=== PATIENT | male | born 1990 | race Two or more races ===

== ENCOUNTER 2024-09-20 10:33 | Emergency (ER) | payer OTHER, SELFPAY ==
--- NOTE | ~2024-09-20 | XR_ITS ---
EXAMINATION: XR KNEE, LEFT CLINICAL INFORMATION: INJURED AT WORK, PAIN AND SWELLING COMPARISON: None available. TECHNIQUE: AP oblique and lateral views of the left knee. FINDINGS: No acute cortical disruption or malalignment. No suprapatellar bursa joint effusion. No lytic or blastic lesions. XR/XR knee LT 4V IMPRESSION: No acute fracture or dislocation. Negative x-ray. Electronically signed by: Jagdeep Stubbs MD 09/20/2024 11:17 AM EDT
[2024-09-20 10:45] VITALS: BP 146/72; PULSE 76; RESP 16; TEMP 36.4; O2SAT 98; BMI 29.2
--- NOTE | 2024-09-20 12:24 | ED_ITS ---
HPI - General Adult General Chief complaint: Extremity Injury, Lower Stated complaint: l knee inj at work Time Seen by Provider: 09/20/24 12:15 Source: patient, RN notes reviewed and old records reviewed Mode of arrival: ambulatory Limitations: no limitations History of Present Illness ED Provider: Thompson [facility] 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 Has not taken any ybwk-wzc-znntoyl medications. Arrives with najw-kxa-ncdxiur brace. Denies any weakness, numbness, tingling. Able to ambulate without difficulty. Denies fevers. MD complaint: knee pain Onset (ago): day(s) Related Data Allergies Allergy/AdvReac Type Severity Reaction Status Date / Time No Known Allergies Allergy Verified 09/20/24 10:47 Review of Systems Review of Systems: as per hpi Yes all other systems are reviewed and are negative Constitutional: Constitutional: Reports as per HPI [facility] Social History Social History Advance Directives: No Advance Directives Information Provided: Yes Physical Exam ED Vital Signs: Vital Signs - 24 hr 09/20/24 10:45 Temperature 97.6 F Pulse Rate 76 Respiratory Rate 16 Blood Pressure 146/72 H Pulse Oximetry 98 Oxygen Delivery Method Room Air BMI result Body Mass Index 29.2 Vital signs have been reviewed and appear to be correct. Blood pressure normal. Heart rate normal. Respiratory rate normal. Temperature normal. Oxygen saturation normal. Const General: cooperative, healthy appearing and no acute distress Orientation/consciousness: oriented to person, oriented to place, oriented to time and patient oriented x3 Limitations: no limitations [facility] Head: Yes normocephalic and Yes atraumatic Ears: external ears normal General nose exam: Normal external nose present Face and sinus: Yes face symmetric Mouth: oropharynx normal and moist mucous membranes Throat: Yes uvula midline Eyes Pupils: Equal, round and reactive pupils present Neck Neck: Yes normal visual inspection and Yes supple Resp Effort & Inspection: normal respiratory effort and able to speak in complete sentences Auscultation: clear to auscultation bilaterally Cardio Rate: regular rate Rhythm: regular rhythm Heart sounds: S1 normal heart sound present and S2 normal heart sound present GI Palpation (GI): Soft to palpation and nontender Auscultation: normoactive bowel sounds General: Yes no CVA tenderness Back/Spine/Pelvis Back: no CVA tenderness Skin General skin exam: elasticity normal and turgor normal Neuro General: oriented to person, oriented to place, oriented to time, patient oriented x3, moves all extremities, no focal motor deficits and CN's II-XI intact bilaterally Cranial nerves: Yes Equal, round and reactive pupils present Cognition (Neuro): normal cognition Extrem General: Yes full ROM, Yes no pedal edema and Yes no calf tenderness Left lower extremity: knee Details: normal to inspection, normal ROM and knee ligament exam normal; no tenderness, no swelling, no ecchymosis, no crepitus and no unusual warmth Psych Mental Status: mental status grossly normal Affect: normal affect Thought process: Normal thought process present Medical Decision Making Medical Decision Making [facility] Narrative: Patient is a 34-year-old male presenting to the emergency department with complaint of left knee pain since 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 On exam patient is awake, A+Ox3, VS WNL, afebrile, normal neurological exam without focal deficits, physical exam findings as above. Given reported symptoms and physical exam findings, initial differential includes but is not limited to left knee strain, sprain, effusion. Unlikely fracture or ligament injury based on physical exam findings. X-ray notable for no acute fracture. My interpretation is in agreement with the radiologist's interpretation. Results discussed with patient all questions answered. Advised alternating Tylenol and ibuprofen, rest, ice, elevation. Will give orthopedic referral for ongoing symptoms. Also [facility]. Return precautions discussed. Patient verbalized understanding of and agreement with plan. Differential Diagnosis Differential Diagnoses: The differential diagnosis associated with the presentation includes As per [facility] Admission/Observation Consideration of admission/observation: Escalation of care including admission/observation considered Patient would have been admitted to the hospital had their clinical presentation warranted hospital admission. Independent Interpretation I performed an independent interpretation of an: Plain X-Ray Radiology Impression Discussion of test interpretation with radiology: I have reviewed the radiologist's reading. Radiologist Impression: XR/XR knee LT 4V IMPRESSION: No acute fracture or dislocation. Negative x-ray. External Record Review External record reviewed: Inpatient record, Office record and Outpatient record Discharge Plan Discharge Clinical Impression: Strain of left knee Qualifiers: Encounter type: initial encounter Qualified Code(s): S86.912A - Strain of unspecified muscle(s) and tendon(s) at lower leg level, left leg, initial encounter Patient Disposition: Home, Self-Care Instructions: Knee Pain (ED), P.R.I.C.E. Treatment (ED) Additional Instructions: You have been evaluated in the emergency department today for knee pain. Your evaluation did not find evidence of medical conditions requiring emergent intervention at this time. Rest, ice, and elevate your knee, and resume normal activities as tolerated. Continue to use the brace for support. We recommend y ou take 600mg ibuprofen every 6 hours or 650mg Tylenol every 6 hours as needed for pain. If needed you can alternate these medications as they take 1 medication every 3 hours. For instance at noon take ibuprofen, then at 3:00 p.m. take Tylenol, then at 6:00 p.m. take ibuprofen. Please schedule an appointment for follow-up with your primary care provider this week. Follow up with orthopedics if symptoms persist beyond the next 1-2 weeks. Return to the emergency department if you experience worsening pain, numbness, tingling, change of color in your leg, or any other concerning symptoms. You can follow up with [facility] if you are unable to return to work. [facility] [address] [place] [address] Referrals: [facility] [Provider Group] Clinical Impression: Strain of left knee Stand Alone Forms: Work/School Release Print Language: Liberian
--- OUTSIDE RECORDS SUMMARY | 2024-09-20 12:38 | XMS_ITS | Clinical Summary ---
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 Role Phone Unavailable Primary Care Provider Unavailabl e Immunizations Immunization Administration Dates Next Due DTP 07/04/1992, 0,1988,1988,1988 Hep B, ped/adol 06/10/2000,12/01/1999,10/15/1999 Hib (PRP-T) 12/09/1989 MMR 10/15/1999,07/05/1989 OPV 07/04/1992, 0,1988,1988 Td (adult) (MBL), 2 Lf tetan us toxoid, PF, adsorbed 10/15/1999 Family History Relation Name Status Comments Brother Alive Brother: Alive and well Father Alive Father: Alive a nd well Mother Alive Mother: Alive a nd well Other Alive wili: Alive an d well Social History Tobacco Use Types Packs/Day Years Used Date Smoking Tobacco: Never Assessed Sex and Gender Information Value Date Recorded Sex Assigned at Not on file Legal Sex Male 4:11 PM EDT Gender Identity Not on file Sexual Orientation Not on file Plan of Treatment Health Maintenance Due Date Last Done Comments DTaP,Tdap,and Td Vaccines (6 - Tdap) 10/16/1999 10/15/1999, 07/04/1992, 12/09/1989, Additional history exists Varicella Vaccines (1 of 2 - 13+ 2-dose series) 01/15/2001 HPV Vaccines (1 - 3-dose SCDM series) 01/15/2015 COVID-19 Vaccine (1 - 2023- season) 2023 Influenza Vaccines (#1) 2024 HIB Vaccines Completed 12/09/1989 IPV Vaccines Completed 07/04/1992, 11/15, 1988, Additional history exists MMR Vaccines Completed 10/15/1999, 07/05/1989 Hepatitis B Vaccines Completed 06/10/2000, 12/01/1999, 10/15/1999 Hepatitis A Vaccines Aged Out No long er eligible based on patient's age to complete this topic Men B Vaccine Aged Out No longer elig ible based on patient's age to complete this topic Meningococcal Vaccine Aged Out No chelsi todd eligible based on patient's age to complete this topic Pneumococcal Vaccine Aged Out No long er eligible based on patient's age to complete this topic
[2024-09-20 13:14] VITALS: BP 146/72; PULSE 76; RESP 16; TEMP 36.4; O2SAT 98
== END 2024-09-20 13:14 | disposition home or self-care (01) ==
PROVIDERS: Emergency Provider Emergency Medicine
DX: S39.012A Strain of muscle, fascia and tendon of lower back, initial encounter (principal); X58.XXXA Exposure to other specified factors, initial encounter; Y93.01 Activity, walking, marching and hiking; Y92.89 Other specified places as the place of occurrence of the external cause
CPT/HCPCS: 73564; 99282; 99283

== ENCOUNTER → 2024-09-20 11:00 | Outpatient (BNV) | payer OTHER, SELFPAY | PROVIDERS: Visit Provider Radiology Diagnostic Radiology | DX: M25.562 Pain in left knee (principal) | CPT/HCPCS: 73564 ==

== ENCOUNTER 2024-10-31 08:30 | Outpatient (REF) | payer OTHER, SELFPAY ==
--- NOTE | ~2024-10-31 | XR_ITS ---
EXAMINATION: XR KNEE, LEFT CLINICAL INFORMATION: M25.562 - Pain in left knee COMPARISON: None available. TECHNIQUE: AP view bilateral knees standing, lateral and patellofemoral views left knee. FINDINGS: RIGHT KNEE: No fracture or dislocation. Normal alignment. Preserved joint spaces. Normal soft tissues. LEFT KNEE: No fracture, dislocation, or suspicious bone lesion. Joint spaces are preserved. Normal knee and patellar alignment. Normal soft tissues. XR/XR knee LT 3V IMPRESSION: 1. Normal left knee radiographs. Electronically signed by: Mc Cameron MD 10/31/2024 11:37 AM EDT
--- OUTSIDE RECORDS SUMMARY | 2024-10-31 09:40 | XMS_ITS | Encounter Summary ---
Author Organization [facility] Address [address] [place] [phone] Phone Care Team Providers Care Medical Unit Secretary Name Role Phone Eric Bolton MD Primary Care Provider [phone] Encounter Details Date Type Department Care Team (Late st Contact Info) Description 09/30/2016 Conversion Encounter [facility] [place] [address] [place] [address] Social History Tobacco Use Types Packs/Day Years Used Date Smoking Tobacco: Never Assessed Sex and Gender Information Value Date Recorded Sex Assigned at Not on file Legal Sex Male 4:11 PM EDT Gender Identity Not on file Sexual Orientation Not on file documented as of this encounter Plan of Treatment Not on file documented as of this encounter Visit Diagnoses Not on filedocumented in this encounter Care Teams Medical Unit Secretary Relationship Specialty Start Date End Date Eric Bolton MD [address] [place] [address] PCP - General 09/24/16 05/23/22 documented as of this encounter
--- OUTSIDE RECORDS SUMMARY | 2024-10-31 09:40 | XMS_ITS | Clinical Summary ---
Author Organization [facility] Address [address] [place] [phone] Phone Care Team Providers Care Comedian Name Role Phone Unavailable Primary Care Provider [...] Vaccines (1 - 3-dose SCDM series) 01/15/2015 Influenza Vaccines (#1) 2024 COVID-19 Vaccine ( - season) 2024 HIB Vaccines Completed 12/09/1989 IPV Vaccines [...]
== END 2024-10-31 08:31 | disposition home or self-care (01) ==
LOC: HO.HOSX 08:30
DX: S83.002D Unspecified subluxation of left patella, subsequent encounter (principal); M25.562 Pain in left knee; Y99.0 Civilian activity done for income or pay; W50.2XXD Accidental twist by another person, subsequent encounter
CPT/HCPCS: 73562; 99202

== ENCOUNTER 2024-10-31 11:13 | Outpatient (AMB) | payer OTHER, SELFPAY ==
--- NOTE | 2024-10-31 11:15 | A.OFFVIS_ITS ---
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 This is a workers comp injury. 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 At the ED he was advised to rest, ice, and elevate the knee, and continue with normal activities as tolerated. He presents today with a knee brace he bought himself over the counter. He says he is unsure if the brace is helping his knee since he has noticed more pain with it on. Any bending activities of the knee increases his pain along with ambulation of stairs. Every now and then patient experiencing cracking and popping in the left knee. Pain is localized on patient's knee cap. Some days he feels his knee cap is not attached. Patient states he had no injuries to the knees prior to this one. Denies numbness and tingling. 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 This is a workers comp injury. 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 The patient feels that he felt his kneecap ?slide out of place? during the injury, but then it did return to anatomical position without further issue. At the ED he was advised to rest, ice, and elevate the knee, and continue with normal activities as tolerated. He presents today with a knee brace he bought himself over the counter. He says he is unsure if the brace is helping his knee since he has noticed more pain with it on. Any bending activities of the knee increases his pain along with ambulation of stairs. Every now and then patient experiencing cracking and popping in the left knee. Pain is localized on patient's knee cap. Some days he feels his knee cap is not attached. Patient states he had no injuries to the knees prior to this one. Denies numbness and tingling. [facility] Social History (Updated 10/31/24 @ 11:30 by MARII Mancilla) Alcohol intake: current Alcohol intake frequency: holidays/special occasions only Patient Tobacco Use Status: Current someday Tobacco user Tobacco use type: Cigar Current occupational status: employed Current occupation: [employer] employee - right hand dominant Review of Systems Const All systems reviewed & are unremarkable except as noted in HPI and below Physical Exam Vital Signs: BMI result Body Mass Index 28.5 Extrem Other: Patient's left knee normal to inspection No erythema, ecchymosis, edema noted No lacerations, abrasions, open areas No evidence of infection Patient reports tenderness to palpation of the peripatellar region of the left knee, including the patellar tendon No tenderness to palpation of mediolateral joint lines, posterior knee, quad tendon, tibial tubercle, or elsewhere on the left knee Patient is able to extend the left knee to 0 degrees and flex to approximately 120 degrees without difficulty Negative Jason's No ligamentous laxity with varus and valgus testing Negative anterior drawer Positive patellar apprehension in the left, negative on the right Positive patellar grind on the left, negative on the right Distal sensation intact Capillary refill brisk Results Reviewed Results Reviewed: X-rays obtained in the office today and independently reviewed by me, Josh Sorensen PA-C, demonstrate no fracture or acute bony abnormality of the left knee. Assessment & Plan Assessment & Plan (1) Subluxation of left patella: Code(s): S83.002A - Unspecified subluxation of left patella, initial encounter Category: Medical Plan 1. Subluxation of the left patella Date of injury 09/20/2024 Patient is educated about this condition Patient is educated about the typical treatment and recovery course As this is the 1st time the patient has had any issues with patellar dislocation or subluxation, I feel that a course of physical therapy and symptomatic bracing is the best place to start in terms of his treatment PT referral was placed in the office today for range of motion, strengthening, stabilization, gait training of the left knee in the setting of patellar subl uxation/instability Patient is educated that if PT is ineffective, particularly if he experiences repeat injury, he should call our office for reassessment and discussion of further treatment options Patient understands this is amenable to this plan Follow-up as needed with any acute concerns Orders: Orders XR knee LT 3V 10/31/24 M25.562 - Pain in left knee PT Evaluation and Treatment 10/31/24 S83.002A - Unspecified subluxation of left patella, initial encounter Coding Level of Care Code New Pt Level 3 (36412) Diagnoses Subluxation of left patella S83.002A
[2024-10-31 11:28] VITALS: BMI 28.5
== END 2024-10-31 11:51 | disposition home or self-care (01) ==
LOC: HO.HOS 11:14
DX: S83.002A Unspecified subluxation of left patella, initial encounter (principal)
CPT/HCPCS: 99203

== ENCOUNTER → 2024-10-31 11:15 | Outpatient (BNV) | payer OTHER, SELFPAY | PROVIDERS: Visit Provider Radiology Diagnostic Radiology | DX: M25.562 Pain in left knee (principal) | CPT/HCPCS: 73562 ==

== ENCOUNTER 2024-12-11 08:59 | Outpatient (RCR) | payer OTHER, SELFPAY ==
--- NOTE | 2024-11-13 09:45 | MHC.PT.EP ---
[facility] [place] Office [place] [facility] [place] [facility] [address] [phone] F: [phone] F: [phone] F: [phone] F: [phone] Physical Therapy Plan of Care Date of Evaluation: 11/13/24 Date of Surgery: NA Diagnosis: Unspecified subluxation of L patella, iniital encounter Assessment: Efra is a 31 year old male who is referred to PT for unspecified subluxation of L patella, initial encounter . He injured his L knee at work about 1 month back while doing twisting motion on planted foot. On PT examination he presented with TTP along medial border of patella, 5/10 pain in L knee with sitting or standing for more than 15 minutes, and stairs decreased L knee ROM, decreased L LE strength, altered posture and gait. He lives with family and is independent with all ADLS but has pain with them. He works for [employer] and is currently out of work. He would benefit from skilled PT to address the aforementioned impairments and improve tolerance to functional activities. Frequency and Duration: The patient will be seen 2/week for 5 weeks Short Term Goals: 1. Pt will have 50% decrease in pain which will enable him to sit without pain in 2 weeks 2. Pt will be able to move his knee through full plane of motion without pain which will enable him to negotiate stairs without pain in 3 weeks Lay Out Former Goals: 1. Pt will demonstrate an increase in muscle strength by 1 grade which will enable him to tolerate walking and doing ADLS without pain in 5 weeks 2. Pt will be independent with all HEP and return to PLOF in 5 weeks Treatment Plan: Modalities to reduce pain, spasms and effusion. Manual therapy to restore motion and function. Therapeutic exercise to improve strength and flexibility. Neuromuscular re-education for posture and balance. Therapeutic activities to return to functional activities of daily living. Electronically signed by: Jo Ann Devine PT DPT Please sign and return to therapist. Thank you for your referral.
--- NOTE | 2025-01-15 11:33 | MHC.PT.DC ---
[facility] [place] Office [place] Office [place] Office [address] [phone] F: [phone] F: [phone] F: [phone] F: [phone] Physical Therapy Discharge Report Diagnosis: Unspecified subluxation of L patella, iniital encounter Date of Surgery: NA Date of Evaluation: 11/13/24 Date of Discharge: 01/15/25 Treatments to Date: 5 Cancellations to Date: 0 No Shows to Date: 0 Discharge Status: Improved Function Independent with HEP Discharge Summary: Efra canceled his last 2 appointments stating he was cleared to return to work. He was independent with all HEP and had made significant improvements at the time of his last appointment. He is therefore being d/c from PT. Electronically signed by: Jo Ann Devine PT DPT Please sign and return to therapist. Thank you for your referral.
== END 2025-01-15 11:33 | disposition home or self-care (01) ==
LOC: HO.PT 08:59
DX: S83.002D Unspecified subluxation of left patella, subsequent encounter (principal)
CPT/HCPCS: 97110; 97161; 97530